=== PATIENT | male | born 1975 | race Hispanic/Latino ===

== ENCOUNTER 2019-03-20 13:31 | Emergency (ER) | payer OTHER ==
[2019-03-20] MEDS ORDERED: TETANUS/DIPHTHERIA TOXOID [ADULT] 0.5 ML VIAL IM ONE (14:49)
[2019-03-20] MEDS ORDERED: ACETAMINOPHEN EXTRA STRENGTH 500 MG TABLET ONE (14:49)
[2019-03-20] MEDS ORDERED: L.E.T. GEL 4%/0.5%/0.18% 3ML 3 ML/SYR SYG TP ONE (14:49)
== END 2019-03-20 15:35 | disposition home or self-care (01) ==
LOC: EDH 13:31
DX: S01.01XA Laceration without foreign body of scalp, initial encounter (principal); W17.89XA Other fall from one level to another, initial encounter; Y93.89 Activity, other specified; Y92.009 Unspecified place in unspecified non-institutional (private) residence as the place of occurrence of the external cause; Y99.8 Other external cause status
CPT/HCPCS: 12001; 90471; 90714

== ENCOUNTER 2019-05-17 06:42 | Day surgery (SDC) | payer OTHER ==
[2019-05-15 15:40] LABS: BASOPHILS % (AUTO) 0.6 % (0.0-5.0); EOSINOPHILS % (AUTO) 3.8 % (0.0-8.0); HEMATOCRIT 44.8 % (42-54); LYMPHOCYTES % (AUTO) 26.7 % (21.0-51.0); MEAN CORPUSCULAR HEMOGLOBIN 27.7 pg (27.0-33.0); MEAN CORPUSCULAR VOLUME 83.7 fL (79-99); MONOCYTES % (AUTO) 6.6 % (3.0-13.0); NEUTROPHILS % (AUTO) 61.9 % (40.0-77.0); PLATELET COUNT (AUTO) 159 K/uL (130-400); RED BLOOD CELL COUNT(AUTO) 5.35 MIL/uL (4.50-6.20); RED CELL DISTRIBUTION WIDTH 12.6 % (11.0-15.5); WHITE BLOOD COUNT (AUTO) 8.4 K/uL (4.8-10.8)
[2019-05-15 15:51] LABS: CREATININE 0.8 mg/dL (0.5-1.5); POTASSIUM 4.4 mmol/L (3.5-5.1)
[2019-05-15 16:06] VITALS: BP 149/97
[~2019-05-17] VITALS: Ht 184.2 cm; Wt 114.7 kg
[2019-05-17] VITALS (13 sets, daily range): BP systolic 113–141; BP diastolic 68–83
[~2019-05-17 06:42] MED LIST: LISI2.5T2 PO; SITA1TAB6 PO
[2019-05-17] MEDS ORDERED: SODIUM CHLORIDE 0.9% 1000ML 1,000 ML IV ONE (07:07)
[2019-05-17] MEDS ORDERED: BUPIVACAINE/PF 0.25% 30ML VIAL IJ ONE (08:06)
[2019-05-17] MEDS ORDERED: LIDOCAINE PF 2% 5ML ABBOJECT ONE (08:18)
[2019-05-17] MEDS ORDERED: DEXAMETHASONE SOD PHOSPHATE 10MG/ML 1ML VIAL ONE (08:18)
[2019-05-17] MEDS ORDERED: ONDANSETRON HCL 4 MG/2 ML VIAL ONE ×2 (08:19→08:38)
[2019-05-17] MEDS ORDERED: PROPOFOL 10 MG/ML 20ML VIAL IV ONE (08:19)
[2019-05-17] MEDS ORDERED: MIDAZOLAM HCL 1 MG/ML 2ML VIAL ONE (08:19)
[2019-05-17] MEDS ORDERED: FENTANYL CITRATE PF 50 MCG/1 ML 2ML VIAL ONE (08:28)
[2019-05-17] MEDS ORDERED: KETOROLAC TROMETHAMINE 30MG/ML ONE (09:02)
--- NOTE | 2019-05-17 09:55 | NUR ---
POST RECEIVED PATIENT FROM PACU, S/P EXCISION LARGE LIPOMA RIGHT AXILLA. DRESSING TO SITE DRY AND INTACT, VS STABLE. PT DENIED ANY PAIN OR DISCOMFORTS. FAMILY AT BEDSIDE
--- NOTE | 2019-05-17 10:24 | NUR ---
dc pt dc home via wc,no distress noted. pt denied any pain or discomforts. right axilla dressing dry and intact, pt accompanied by mom
== END 2019-05-17 10:24 | disposition home or self-care (01) ==
LOC: DAH 06:42
PROVIDERS: ATTEND Surgery
DX: D17.1 Benign lipomatous neoplasm of skin and subcutaneous tissue of trunk (principal); E11.9 Type 2 diabetes mellitus without complications; I10 Essential (primary) hypertension
CPT/HCPCS: 21552; 36415; 80048; 82948 ×2; 85025; A4215; A4221; A4222; A4223; A4450; A4663; A6260; J1100; J1885; J2001; J2250; J2405 ×2; J2704; J3010; J3490; J7030

== ENCOUNTER 2019-05-29 14:25 | Emergency (ER) | payer OTHER ==
[2019-05-29] MEDS ORDERED: CEFTRIAXONE SODIUM 500 MG VIAL ONE (16:43)
[2019-05-29] MEDS ORDERED: LIDOCAINE HCL-MPF 1% 2ML VIAL ONE (16:43)
== END 2019-05-29 16:53 | disposition home or self-care (01) ==
LOC: EDH 14:25
DX: H01.006 Unspecified blepharitis left eye, unspecified eyelid (principal); E11.9 Type 2 diabetes mellitus without complications; I10 Essential (primary) hypertension
CPT/HCPCS: 82948; 96372; 99283; J0696; J3490

== ENCOUNTER 2019-10-02 21:14 | Emergency (ER) | payer OTHER ==
[2019-10-02] MEDS ORDERED: SODIUM CHLORIDE IRRIG SOLUTION 1,000 ML IR ONE (21:15)
[2019-10-02] MEDS ORDERED: ONDANSETRON HCL 4 MG/2 ML VIAL ONE (21:23)
[2019-10-02 21:47] LABS: BASOPHILS % (AUTO) 0.3 % (0.0-5.0); EOSINOPHILS % (AUTO) 0.2 % (0.0-8.0); HEMATOCRIT 39.3 % (42-54); LYMPHOCYTES % (AUTO) 15.4 % (21.0-51.0); MEAN CORPUSCULAR HEMOGLOBIN 27.7 pg (27.0-33.0); MEAN CORPUSCULAR HGB CONC 34.1 g/dL (32.0-36.0); MEAN CORPUSCULAR VOLUME 81.2 fL (79-99); MONOCYTES % (AUTO) 6.9 % (3.0-13.0); NEUTROPHILS % (AUTO) 76.8 % (40.0-77.0); PLATELET COUNT (AUTO) 149 K/uL (130-400); RED BLOOD CELL COUNT(AUTO) 4.84 MIL/uL (4.50-6.20); RED CELL DISTRIBUTION WIDTH 11.9 % (11.0-15.5); WHITE BLOOD COUNT (AUTO) 10.5 K/uL (4.8-10.8)
[2019-10-02] MEDS ORDERED: KETOROLAC TROMETHAMINE 30MG/ML ONE (21:55)
[2019-10-02 21:57] LABS: CREATININE 0.9 mg/dL (0.5-1.5)
[2019-10-02 22:02] LABS: ALBUMIN 4.1 g/dL (3.5-5.0); BILIRUBIN,TOTAL 0.6 mg/dL (0.2-1.0); TOTAL PROTEIN, SERUM 8.4 g/dL (6.0-8.3)
[2019-10-02] MEDS ORDERED: ACYCLOVIR 200 MG CAPSULE ONE ×2 (22:44→22:45)
== END 2019-10-02 22:59 | disposition home or self-care (01) ==
LOC: EDH 21:14
DX: E11.65 Type 2 diabetes mellitus with hyperglycemia (principal); R51 Headache; I10 Essential (primary) hypertension
CPT/HCPCS: 36415; 70450; 80053; 85025; 96361; 96374; 96375; 99284; J1885; J2405

== ENCOUNTER 2020-02-18 22:22 | Emergency (ER) | payer OTHER | END 2020-02-18 23:58 | disposition home or self-care (01) | LOC: EDH 22:22 | DX: S61.312A Laceration without foreign body of right middle finger with damage to nail, initial encounter (principal); E11.9 Type 2 diabetes mellitus without complications; I10 Essential (primary) hypertension; Z98.890 Other specified postprocedural states; W26.8XXA Contact with other sharp object(s), not elsewhere classified, initial encounter; Y93.89 Activity, other specified; Y92.89 Other specified places as the place of occurrence of the external cause; Y99.8 Other external cause status | CPT/HCPCS: 73140 ==

== ENCOUNTER → 2023-05-05 | Outpatient (CLI) | payer OTHER ==
[~2023-05-05] MED LIST changes: +LISI2.5T13 PO; -LISI2.5T2 PO
== END | disposition home or self-care (01) ==
LOC: OIH 08:02
PROVIDERS: ATTEND Internal Medicine
DX: Z13.6 Encounter for screening for cardiovascular disorders (principal)
CPT/HCPCS: 75571